=== PATIENT | male | born 1950 | race Caucasian/White ===

== ENCOUNTER 2018-01-12 19:21 | Inpatient (IN) | payer MEDICARE ==
[~2018-01-12] VITALS: Ht 142.2 cm; Wt 56.6 kg
--- NOTE | ~2018-01-12 | CN ---
PATIENT NAME:BEVERLY MANCIA MEDICAL RECORD: [id number] : 50 LOCATION:[id number] ADMIT DATE: 01/13/18 ACCOUNT: [id number] CONSULTING PHYSICIAN: [place] SHI MD REFERRING PHYSICIAN: LUZ JULIEN MD DATE OF CONSULTATION: 01/19/2018 Surgical Consultation ADDENDUM CHIEF COMPLAINT: Need for trach. HISTORY OF PRESENT ILLNESS: The patient has methicillin-resistant Staphylococcus aureus pneumonia. He has undergone serial bronchoscopies. I discussed this case personally with Dr. Pappas. He would like me to perform another therapeutic bronchoscopy during placement of the tracheostomy. I told him I would be happy to do so. The patient has cerebral palsy. He is unable to communicate with me as he is being mechanically ventilated. The risks, possible complications and alternatives were explained. A consent form was signed. The patient has methicillin-resistant Staphylococcus aureus pneumonia. He is a patient of Dr. Julien'diane. The pneumonia is bilateral. The patient has some hypoxia. Ventilation alleviates. Lack of ventilation aggravates. The patient has cerebral palsy. He is in amazingly good shape considering his age and his neurologic disorder. This is consultation note addendum. For the typed portion of the consult note, please see the chart. This would include the past medical and surgical history, current medications, allergies, social history as well as family history. REVIEW OF SYSTEMS: Unobtainable from the patient due to his ventilated state and sedation. PHYSICAL EXAMINATION: GENERAL: The patient does not appear acutely ill. He does appear chronically ill. VITAL SIGNS: Reviewed. EARS: External ears appear normal. EYES: Unable to assess. BACK: Kyphotic. EXTREMITIES: He has flexion contracture of the extremities. PULMONARY: Rhonchi bilaterally. He is being mechanically ventilated. Trachea is not in the midline. ABDOMEN: Benign. Unable to assess due to sedation. PSYCHIATRIC: Unable to assess due to sedation. NEUROLOGIC: Markedly abnormal. IMPRESSION: Pneumonia requiring prolonged mechanical ventilation and serial bronchoscopies. PLAN: Therapeutic and diagnostic bronchoscopy with bronchoalveolar lavage and placement of a percutaneous tracheostomy tube. CONSULT REPORT [id number] BEVERLY MANCIA TRANSINT:[id number] Voice Confirmation ID: [id number] DOCUMENT ID: [id number] KY SHI MD at 1517 CC: [id number] DICTATION DATE: 01/20/18 1135 TAX APPRAISER: 01/20/18 1203 ADM IN [facility] [address] [id number]
--- NOTE | ~2018-01-12 | OP ---
PATIENT NAME: BEVERLY MANCIA MEDICAL RECORD: [id number] :50 LOCATION:D.[facility] D.2306 ADMISSION DATE:01/13/18 SURGEON: AZAEL SHI MD DATE OF OPERATION: 01/20/2018 PREOPERATIVE DIAGNOSES: 1. Prolonged mechanical ventilation. 2. Methicillin resistant staphylococcus aureus pneumonia. POSTOPERATIVE DIAGNOSES: 1. Prolonged mechanical ventilation. 2. Methicillin resistant staphylococcus aureus pneumonia with purulence in all of the lobes of both lungs with severe bronchitis. PROCEDURES: 1. Diagnostic and therapeutic bronchoscopy with bronchoalveolar lavage. 2. Percutaneous tracheostomy placement, 7 mm. SURGEON: Azael Shi MD SUBSURFACE AUGMENTEE ELINT OPERATOR: None. BLOOD LOSS: Minimal. ANESTHESIA: General. COMPLICATIONS: None. The risks, possible complications, and alternatives to the procedure were explained. A consent form was signed. OPERATIVE COURSE: The patient was conveyed to the operating room electively on 01/20/2018. General anesthesia was induced by the anesthesia staff. The neck and upper chest were sterilely prepped and draped. A bronchoscopic adapter was applied to the endotracheal tube. I advanced a well-lubricated bronchoscope down into the endotracheal tube. Utilizing saline flushes, I irrigated and aspirated all the segmental bronchi. There was a great deal of bronchitis present diffusely as well as a lot of purulent debris within the segmental bronchi. I irrigated until all the segmental bronchi were free of any mucopurulent debris. I then removed the bronchoscope. I went and made a midline incision above the suprasternal notch. Due to the contracture of the patient with the face and neck being contracted to the left, the patient's trachea is actually off the midline, to the left. I dissected down to the trachea. I had to divide the isthmus of the thyroid gland. I had to divide some of the strap muscles as well due to this curvature of his neck. I dissected down into the trachea. I cleaned down past the second tracheal cartilage. I inserted a tracheal hook. I went above and advanced the bronchoscope once again. I had the bean sprout laborer slowly withdraw the bronchoscope and the endotracheal tube as a single unit. I then visualized bronchoscopically as I tapped the anterior portion of the trachea. Once I was able to see this, I then punctured at the level of the OPERATIVE REPORT [id number] BEVERLY MANCIA second tracheal cartilage anteriorly with an Angiocath. Through the Angiocath, I advanced a guidewire caudad down into the tracheobronchial tree. Over the guidewire, I dilated to a larger size. A 7 mm well-lubricated tracheostomy tube, which had been loaded on an obturator was advanced over the wire. It was advanced into the trachea. The balloon was inflated. The obturator and wire were removed. I then attached the corrugated tubing to the tracheostomy. We began ventilating the patient through the tracheostomy. After a little while, I removed the corrugated tubing and I performed a quick bronchoscopy down through the tracheostomy to confirm intratracheal placement. There was no evidence of injury to the esophagus. Endotracheal placement was confirmed. The tracheostomy adapter was applied and the tracheostomy was sutured to the surrounding skin with 2-0 nylons while the patient was being ventilated. I then closed the skin around the tracheostomy with interrupted 3-0 Vicryls. I then instilled some Krysta into the wound for additional hemostasis. A sterile dressing was applied. The patient was then conveyed to the intensive care unit in critical condition. TRANSINT:[id number] Voice Confirmation ID: [id number] DOCUMENT ID: [id number] AZAEL SHI MD at 1158 CC: [id number] DICTATION DATE: 01/23/18 144 ANESTHESIOLOGIST ASSISTANT CERTIFIED: 01/23/182053 DIS IN 02/01/18 [facility] [address] [id number]
--- NOTE | ~2018-01-12 | CN ---
PATIENT NAME:BEVERLY MANCIA MEDICAL RECORD: [id number] : 50 LOCATION:D[facility] ADMIT DATE: 01/13/18 ACCOUNT: [id number] CONSULTING PHYSICIAN: ESME DALTON MD REFERRING PHYSICIAN: LUZ JULIEN MD DATE OF CONSULTATION: 01/13/2018 CONSULT REQUESTING PHYSICIAN: Dr. Linda Julien. REASON FOR CONSULTATION: Pneumonia, eoymd-oi-kogerwk hypoxic hypercapnic respiratory failure. HISTORY OF PRESENT ILLNESS: Mr. Mancia is a 67-year-old gentleman who has a history of cerebral palsy. The history was taken by the help of his caregiver. He was brought in with chest pain and he was breathing very hard, and he was also very fatigued. There was slight cough without much sputum production. He denies any fever and chill. The patient is not eating and drinking because he has a PEG tube placement, but they are not sure if he might eat where he visits somebody else. REVIEW OF SYSTEMS: The detail not obtainable. PAST MEDICAL HISTORY: 1. Cerebral palsy. 2. Dysphagia. PAST SURGICAL HISTORY: Status post PEG tube placement. ALLERGIES: There are no known drug allergies. MEDICATIONS: CAD Best is reviewed. PERSONAL SOCIAL HISTORY: The patient never smoked and nondrinker. FAMILY HISTORY: Noncontributory. PHYSICAL EXAMINATION: GENERAL: The patient is now lying comfortably in bed. He is not in acute distress. VITAL SIGNS: The blood pressure is 179/86, pulse is 76, respiration is 15, temperature 99.1, SPO2 is 100% on BiPAP. HEENT: Conjunctivae are pink. Sclerae nonicteric. NECK: Neck is supple, no JVD. CHEST: The chest excursion minimal on both sides. There are crackles at the bases. There are marked kyphoscoliosis. HEART: Rhythm regular, normal sound, no murmur. ABDOMEN: Abdomen is soft. Bowel sounds present. No hepatosplenomegaly. RECTAL: Deferred. EXTREMITIES: No cyanosis, no clubbing. There is no pedal edema. SKIN: The skin is warm, normal turgor. CENTRAL NERVOUS SYSTEM: The patient is awake and alert. He has a cerebral palsy. LABORATORY DATA AND DIAGNOSTIC STUDIES: Chest radiograph, there are bilateral lower lobe infiltrate. CBC: WBC 18.6, hemoglobin 13.4, hematocrit is 39.2, the CONSULT REPORT [id number] BEVERLY MANCIA platelet count is 169. Chemistry: Sodium is 134, potassium is 3.8, BUN is 12, creatinine 0.8, and bicarb is 34.7. Cardiac enzymes in the normal range. ProBNP is 934. Albumin 3.1. IMPRESSION: 1. Alhig-gn-rikyinh hypoxic hypercapnic respiratory failure. 2. Compensated respiratory acidosis. 3. Bilateral lower lobe pneumonia, most likely community-acquired pneumonia. I would doubt aspiration as the patient has a PEG tube in. 4. Cerebral palsy. 5. Dysphagia, status post PEG tube placement. 6. Leukocytosis secondary to pneumonia. 7. Kyphoscoliosis. 8. Gastroesophageal reflux disease. RECOMMENDATION: 1. Continue Rocephin. I will discontinue Zithromax, start Levaquin to cover for Gram-negative coverage. 2. Follow labs and chest radiograph. Continue PEG feeding. Supplemental oxygen and BiPAP as required. Dr. Julien thank you for involving me in the care of Mr. Mancia. TRANSINT:[id number] Voice Confirmation ID: [id number] DOCUMENT ID: [id number] ESME DALTON MD at 1410 CC: LUZ JULIEN MD [id number] DICTATION DATE: 01/13/18 170 CERTIFIED CODER: 01/13/18 1728 ADM IN [id number] [place] [address]
[~2018-01-12 19:21] MED LIST: ATIVAN1 MG PO; BACLOFEN10 MG PO; BENADRYL 2% CRE30 GM TOPICAL; CLEOCIN HCL150 MG PEG; CLEOCIN HCL150 MG PT; PRILOSEC10 MG PO; ULTRAM50 MG PO; ZANAFLEX4 MG PO
[2018-01-12 21:38] LABS: BASOPHILS 0.1 % (0-2); EOSINOPHILS 0.9 % (0-7); HEMATOCRIT 41.3 % (42.0-54.0); HEMOGLOBIN 14.3 g/dL (13.5-17.5); IMMATURE GRANULOCYTES 0.2 % (0-5); LYMPHOCYTES 10.6 % (15-50); MCH 31.8 pg (26.0-34.0); MCHC 34.6 g/dL (31.0-37.0); MEAN PLATELET VOLUME 11.9 fL (7.4-10.4); MONOCYTES 7.8 % (2-11); NEUTROPHILS 80.4 % (40-80); RBC 4.49 10x6/uL (4.20-6.10); RDW 12.3 % (11.5-14.5); WBC 12.8 10x3/uL (4.8-10.8)
[2018-01-12 21:42] LABS: PLATELET COUNT 193 10x3/uL (130-400)
[2018-01-12 21:51] LABS: APPEARANCE CLEAR (CLEAR); BILIRUBIN NEGATIVE (NEGATIVE); COLOR YELLOW (YELLOW); GLUCOSE NEGATIVE (NEGATIVE); KETONE NEGATIVE (NEGATIVE); NITRITE NEGATIVE (NEGATIVE); PROTEIN NEGATIVE (NEGATIVE); UROBILINOGEN NORMAL (NORMAL)
[2018-01-12 21:55] LABS: ALBUMIN 3.6 g/dL (3.4-5.0); ALKALINE PHOSPHATASE 111 U/L (46-116); ALT (SGPT) 22 U/L (10-68); CALC OSMOLALITY 262 mosm/kg (275-300); CALCIUM 8.6 mg/dL (8.5-10.1); CHLORIDE - SERUM 89 mmol/L (98-107); CREATININE - SERUM 0.4 mg/dL (0.6-1.3); GLUCOSE 101 mg/dL (74-106); POTASSIUM - SERUM 3.8 mmol/L (3.5-5.1); SODIUM 131 mmol/L (136-145); UREA NITROGEN 12 mg/dL (7-18); eGFR NON AFRICAN AMERICAN > 90 mL/min (90-120)
[2018-01-12 22:06] LABS: CKMB 3.2 U/L (0.0-3.6); CREATINE KINASE 137 UL (21-232)
[2018-01-12 22:12] LABS: TROPONIN-I < 0.017 ng/mL (0.000-0.060)
[2018-01-13 03:47] VITALS: BP 178/71; BMI 22.4
[2018-01-13] MEDS ORDERED: ATIVAN0.5 MG PO (05:06)
[2018-01-13] MEDS ORDERED: BACLOFEN20 M1 PO (05:08)
[2018-01-13] MEDS ORDERED: PRILOSEC10 M1 PO (05:09)
[2018-01-13] MEDS ORDERED: ULTRAM50 MG PO (05:12)
[2018-01-13] MEDS ORDERED: ZANAFLEX4 MG PO (05:13)
[2018-01-13 05:19] VITALS: BP 178/71
[2018-01-13 08:10] VITALS: BP 179/84
[2018-01-13 10:57] LABS: BASOPHILS 0 % (0-2); EOSINOPHILS 0 % (0-7); HEMATOCRIT 39.2 % (42.0-54.0); HEMOGLOBIN 13.4 g/dL (13.5-17.5); IMMATURE GRANULOCYTES 0.3 % (0-5); LYMPHOCYTES 1.7 % (15-50); MCH 31.8 pg (26.0-34.0); MCHC 34.2 g/dL (31.0-37.0); MCV 93.1 fL (80.0-100.0); MEAN PLATELET VOLUME 12.2 fL (7.4-10.4); MONOCYTES 0.6 % (2-11); NEUTROPHILS 97.4 % (40-80); PLATELET COUNT 169 10x3/uL (130-400); RBC 4.21 10x6/uL (4.20-6.10); RDW 12.4 % (11.5-14.5)
[2018-01-13 11:04] LABS: WBC 18.6 10x3/uL (4.8-10.8)
[2018-01-13 11:16] LABS: ALBUMIN 3.1 g/dL (3.4-5.0); ALKALINE PHOSPHATASE 85 U/L (46-116); ALT (SGPT) 18 U/L (10-68); CALCIUM 8.3 mg/dL (8.5-10.1); CARBON DIOXIDE 34.7 mmol/L (21.0-32.0); CHLORIDE - SERUM 95 mmol/L (98-107); POTASSIUM - SERUM 3.8 mmol/L (3.5-5.1); PROTEIN - SERUM 7.5 g/dL (6.4-8.2); SODIUM 134 mmol/L (136-145); UREA NITROGEN 12 mg/dL (7-18)
[2018-01-13 11:22] LABS: CALC OSMOLALITY 271 mosm/kg (275-300); CREATININE - SERUM 0.8 mg/dL (0.6-1.3); GLUCOSE 178 mg/dL (74-106); eGFR NON AFRICAN AMERICAN > 90 mL/min (90-120)
[2018-01-13 12:49] VITALS: BP 179/86
[2018-01-13 13:58] VITALS: BMI 22.4
[2018-01-13 15:55] VITALS: BP 179/87
[2018-01-13 16:51] LABS: CKMB 1.8 U/L (0.0-3.6); CREATINE KINASE 121 UL (21-232)
[2018-01-13 16:52] LABS: TROPONIN-I < 0.017 ng/mL (0.000-0.060)
[2018-01-13 20:46] VITALS: BP 186/79
[2018-01-13 22:50] LABS: CKMB 2.4 U/L (0.0-3.6); CREATINE KINASE 154 UL (21-232)
[2018-01-13 22:51] LABS: TROPONIN-I < 0.017 ng/mL (0.000-0.060)
[2018-01-14 01:30] VITALS: BP 101/50
[2018-01-14 04:27] LABS: BASOPHILS 0 % (0-2); EOSINOPHILS 0 % (0-7); HEMATOCRIT 36.1 % (42.0-54.0); HEMOGLOBIN 12.3 g/dL (13.5-17.5); IMMATURE GRANULOCYTES 0.4 % (0-5); LYMPHOCYTES 3.6 % (15-50); MCH 31.2 pg (26.0-34.0); MCHC 34.1 g/dL (31.0-37.0); MCV 91.6 fL (80.0-100.0); MONOCYTES 7.7 % (2-11); NEUTROPHILS 88.3 % (40-80); PLATELET COUNT 155 10x3/uL (130-400); RBC 3.94 10x6/uL (4.20-6.10); RDW 12.4 % (11.5-14.5); WBC 21.7 10x3/uL (4.8-10.8)
[2018-01-14 04:49] VITALS: BP 174/80
[2018-01-14 05:21] LABS: ALBUMIN 2.9 g/dL (3.4-5.0); ALKALINE PHOSPHATASE 88 U/L (46-116); ALT (SGPT) 20 U/L (10-68); BILIRUBIN - TOTAL 0.47 mg/dL (0.2-1.3); CALCIUM 7.7 mg/dL (8.5-10.1); CARBON DIOXIDE 28.8 mmol/L (21.0-32.0); CHLORIDE - SERUM 95 mmol/L (98-107); CKMB 3.3 U/L (0.0-3.6); PROTEIN - SERUM 6.7 g/dL (6.4-8.2); SODIUM 134 mmol/L (136-145); UREA NITROGEN 13 mg/dL (7-18)
[2018-01-14 05:22] LABS: CALC OSMOLALITY 268 mosm/kg (275-300); CREATINE KINASE 270 UL (21-232); CREATININE - SERUM 0.3 mg/dL (0.6-1.3); GLUCOSE 114 mg/dL (74-106); POTASSIUM - SERUM 4.6 mmol/L (3.5-5.1); TROPONIN-I < 0.017 ng/mL (0.000-0.060); eGFR NON AFRICAN AMERICAN > 90 mL/min (90-120)
[2018-01-14 08:25] VITALS: BP 170/68
[2018-01-14 12:38] VITALS: BP 169/87
[2018-01-14 15:49] VITALS: BP 172/86
[2018-01-14 20:00] VITALS: BP 193/93
[2018-01-15] VITALS (17 sets, daily range): BP systolic 103–165; BP diastolic 55–93
[2018-01-15 06:59] LABS: BASOPHILS 0 % (0-2); EOSINOPHILS 0.1 % (0-7); HEMATOCRIT 38.4 % (42.0-54.0); HEMOGLOBIN 12.7 g/dL (13.5-17.5); IMMATURE GRANULOCYTES 0.3 % (0-5); LYMPHOCYTES 5.3 % (15-50); MCH 31.6 pg (26.0-34.0); MCHC 33.1 g/dL (31.0-37.0); MEAN PLATELET VOLUME 12.3 fL (7.4-10.4); MONOCYTES 8.4 % (2-11); NEUTROPHILS 85.9 % (40-80); PLATELET COUNT 184 10x3/uL (130-400); RBC 4.02 10x6/uL (4.20-6.10); RDW 12.8 % (11.5-14.5); WBC 18.1 10x3/uL (4.8-10.8)
[2018-01-15 07:02] LABS: MCV 95.5 fL (80.0-100.0)
[2018-01-15 07:25] LABS: ALBUMIN 2.9 g/dL (3.4-5.0); ALKALINE PHOSPHATASE 86 U/L (46-116); ALT (SGPT) 20 U/L (10-68); BILIRUBIN - TOTAL 0.23 mg/dL (0.2-1.3); CALC OSMOLALITY 273 mosm/kg (275-300); CALCIUM 7.9 mg/dL (8.5-10.1); CARBON DIOXIDE 36.3 mmol/L (21.0-32.0); CHLORIDE - SERUM 95 mmol/L (98-107); CREATININE - SERUM 0.4 mg/dL (0.6-1.3); GLUCOSE 103 mg/dL (74-106); POTASSIUM - SERUM 3.7 mmol/L (3.5-5.1); PROTEIN - SERUM 7.2 g/dL (6.4-8.2); SODIUM 137 mmol/L (136-145); UREA NITROGEN 13 mg/dL (7-18); eGFR NON AFRICAN AMERICAN > 90 mL/min (90-120)
[2018-01-16] VITALS (23 sets, daily range): BP systolic 114–192; BP diastolic 61–92
[2018-01-16 03:48] LABS: BASOPHILS 0 % (0-2); EOSINOPHILS 0.1 % (0-7); HEMATOCRIT 37.3 % (42.0-54.0); HEMOGLOBIN 12.4 g/dL (13.5-17.5); IMMATURE GRANULOCYTES 0.3 % (0-5); LYMPHOCYTES 6.5 % (15-50); MCH 31.3 pg (26.0-34.0); MCHC 33.2 g/dL (31.0-37.0); MCV 94.2 fL (80.0-100.0); MEAN PLATELET VOLUME 11.4 fL (7.4-10.4); NEUTROPHILS 88.1 % (40-80); PLATELET COUNT 160 10x3/uL (130-400); RBC 3.96 10x6/uL (4.20-6.10); RDW 12.4 % (11.5-14.5); WBC 15.3 10x3/uL (4.8-10.8)
[2018-01-16 04:23] LABS: ALBUMIN 2.6 g/dL (3.4-5.0); ALKALINE PHOSPHATASE 78 U/L (46-116); ALT (SGPT) 16 U/L (10-68); BILIRUBIN - TOTAL 0.49 mg/dL (0.2-1.3); CALC OSMOLALITY 276 mosm/kg (275-300); CHLORIDE - SERUM 96 mmol/L (98-107); CREATININE - SERUM 0.4 mg/dL (0.6-1.3); GLUCOSE 97 mg/dL (74-106); MAGNESIUM - SERUM 1.9 mg/dL (1.8-2.4); POTASSIUM - SERUM 3.7 mmol/L (3.5-5.1); PRO BNP 1528 pg/mL (0-125); PROTEIN - SERUM 6.1 g/dL (6.4-8.2); SODIUM 138 mmol/L (136-145); UREA NITROGEN 15 mg/dL (7-18); eGFR NON AFRICAN AMERICAN > 90 mL/min (90-120)
[2018-01-16 04:26] LABS: PHOSPHOROUS 1.3 mg/dL (2.5-4.9)
[2018-01-17] VITALS (24 sets, daily range): BP systolic 112–187; BP diastolic 52–105
[2018-01-17 04:52] LABS: BASOPHILS 0 % (0-2); EOSINOPHILS 0.1 % (0-7); HEMATOCRIT 34.1 % (42.0-54.0); HEMOGLOBIN 11.4 g/dL (13.5-17.5); IMMATURE GRANULOCYTES 0.4 % (0-5); MCH 31.4 pg (26.0-34.0); MCHC 33.4 g/dL (31.0-37.0); MCV 93.9 fL (80.0-100.0); MEAN PLATELET VOLUME 11.2 fL (7.4-10.4); NEUTROPHILS 85.5 % (40-80); PLATELET COUNT 176 10x3/uL (130-400); RBC 3.63 10x6/uL (4.20-6.10); RDW 12.6 % (11.5-14.5); WBC 15.9 10x3/uL (4.8-10.8)
[2018-01-17 05:09] LABS: ALBUMIN 2.4 g/dL (3.4-5.0); ALKALINE PHOSPHATASE 94 U/L (46-116); ALT (SGPT) 18 U/L (10-68); CALCIUM 7.6 mg/dL (8.5-10.1); CARBON DIOXIDE 39.6 mmol/L (21.0-32.0); CHLORIDE - SERUM 94 mmol/L (98-107); MAGNESIUM - SERUM 1.6 mg/dL (1.8-2.4); SODIUM 139 mmol/L (136-145); UREA NITROGEN 16 mg/dL (7-18)
[2018-01-17 05:10] LABS: CALC OSMOLALITY 281 mosm/kg (275-300); CREATININE - SERUM 0.6 mg/dL (0.6-1.3); GLUCOSE 153 mg/dL (74-106); PHOSPHOROUS 2.1 mg/dL (2.5-4.9); eGFR NON AFRICAN AMERICAN > 90 mL/min (90-120)
[2018-01-17 05:11] LABS: POTASSIUM - SERUM 2.7 mmol/L (3.5-5.1)
[2018-01-18] VITALS (24 sets, daily range): BP systolic 94–175; BP diastolic 49–107
[2018-01-18 05:50] LABS: BASOPHILS 0 % (0-2); EOSINOPHILS 0.4 % (0-7); HEMATOCRIT 34.4 % (42.0-54.0); HEMOGLOBIN 11.4 g/dL (13.5-17.5); IMMATURE GRANULOCYTES 0.4 % (0-5); LYMPHOCYTES 6.3 % (15-50); MCH 31.2 pg (26.0-34.0); MCHC 33.1 g/dL (31.0-37.0); MCV 94.2 fL (80.0-100.0); MONOCYTES 6.9 % (2-11); PLATELET COUNT 193 10x3/uL (130-400); RBC 3.65 10x6/uL (4.20-6.10); RDW 12.9 % (11.5-14.5); WBC 14.6 10x3/uL (4.8-10.8)
[2018-01-18 06:26] LABS: ALBUMIN 2.5 g/dL (3.4-5.0); ALKALINE PHOSPHATASE 82 U/L (46-116); CALC OSMOLALITY 285 mosm/kg (275-300); CALCIUM 8.6 mg/dL (8.5-10.1); CARBON DIOXIDE 36.7 mmol/L (21.0-32.0); CHLORIDE - SERUM 99 mmol/L (98-107); CREATININE - SERUM 0.6 mg/dL (0.6-1.3); GLUCOSE 132 mg/dL (74-106); MAGNESIUM - SERUM 1.6 mg/dL (1.8-2.4); PHOSPHOROUS 2.4 mg/dL (2.5-4.9); SODIUM 141 mmol/L (136-145); UREA NITROGEN 20 mg/dL (7-18); eGFR NON AFRICAN AMERICAN > 90 mL/min (90-120)
[2018-01-18 06:27] LABS: ALT (SGPT) 24 U/L (10-68); POTASSIUM - SERUM 3.7 mmol/L (3.5-5.1)
[2018-01-18 16:14] LABS: AFB SPECIMEN PROCESSING Concentration (())
[2018-01-19] VITALS (23 sets, daily range): BP systolic 85–151; BP diastolic 27–138
[2018-01-19 05:14] LABS: BASOPHILS 0.1 % (0-2); EOSINOPHILS 1.8 % (0-7); HEMATOCRIT 33.4 % (42.0-54.0); IMMATURE GRANULOCYTES 0.9 % (0-5); LYMPHOCYTES 9.9 % (15-50); MCH 31.2 pg (26.0-34.0); MCHC 32.9 g/dL (31.0-37.0); MCV 94.6 fL (80.0-100.0); MEAN PLATELET VOLUME 10.9 fL (7.4-10.4); MONOCYTES 7.7 % (2-11); NEUTROPHILS 79.6 % (40-80); PLATELET COUNT 195 10x3/uL (130-400); RBC 3.53 10x6/uL (4.20-6.10); RDW 13.2 % (11.5-14.5); WBC 12.9 10x3/uL (4.8-10.8)
[2018-01-19 05:28] LABS: ALBUMIN 2.2 g/dL (3.4-5.0); ALKALINE PHOSPHATASE 83 U/L (46-116); CALC OSMOLALITY 286 mosm/kg (275-300); CALCIUM 8.6 mg/dL (8.5-10.1); CARBON DIOXIDE 34.7 mmol/L (21.0-32.0); CHLORIDE - SERUM 103 mmol/L (98-107); CREATININE - SERUM 0.6 mg/dL (0.6-1.3); GLUCOSE 105 mg/dL (74-106); MAGNESIUM - SERUM 1.8 mg/dL (1.8-2.4); POTASSIUM - SERUM 4.2 mmol/L (3.5-5.1); PROTEIN - SERUM 6.7 g/dL (6.4-8.2); SODIUM 142 mmol/L (136-145); UREA NITROGEN 23 mg/dL (7-18); eGFR NON AFRICAN AMERICAN > 90 mL/min (90-120)
[2018-01-19 05:43] LABS: ALT (SGPT) 32 U/L (10-68); PHOSPHOROUS 3.5 mg/dL (2.5-4.9)
[2018-01-19 11:21] LABS: FUNGUS STAIN Final report (())
[2018-01-20] VITALS (29 sets, daily range): BP systolic 73–202; BP diastolic 4–97
[2018-01-20 04:33] LABS: BASOPHILS 0.1 % (0-2); EOSINOPHILS 2.3 % (0-7); HEMATOCRIT 31.5 % (42.0-54.0); IMMATURE GRANULOCYTES 1.2 % (0-5); LYMPHOCYTES 12.8 % (15-50); MCH 30.7 pg (26.0-34.0); MCHC 31.7 g/dL (31.0-37.0); MEAN PLATELET VOLUME 11.2 fL (7.4-10.4); MONOCYTES 9.7 % (2-11); NEUTROPHILS 73.9 % (40-80); PLATELET COUNT 198 10x3/uL (130-400); RBC 3.26 10x6/uL (4.20-6.10); RDW 13.7 % (11.5-14.5); WBC 11.6 10x3/uL (4.8-10.8)
[2018-01-20 04:40] LABS: MCV 96.6 fL (80.0-100.0)
[2018-01-20 04:54] LABS: ALBUMIN 2.1 g/dL (3.4-5.0); ALKALINE PHOSPHATASE 73 U/L (46-116); ALT (SGPT) 29 U/L (10-68); BILIRUBIN - TOTAL 0.29 mg/dL (0.2-1.3); CALCIUM 8.6 mg/dL (8.5-10.1); CARBON DIOXIDE 32.5 mmol/L (21.0-32.0); CHLORIDE - SERUM 104 mmol/L (98-107); CREATININE - SERUM 0.5 mg/dL (0.6-1.3); GLUCOSE 126 mg/dL (74-106); POTASSIUM - SERUM 4.5 mmol/L (3.5-5.1); PROTEIN - SERUM 6.4 g/dL (6.4-8.2); SODIUM 142 mmol/L (136-145); eGFR NON AFRICAN AMERICAN > 90 mL/min (90-120)
[2018-01-20 04:55] LABS: CALC OSMOLALITY 292 mosm/kg (275-300); UREA NITROGEN 34 mg/dL (7-18)
[2018-01-21] VITALS (24 sets, daily range): BP systolic 84–146; BP diastolic 47–74
[2018-01-21 04:30] LABS: BASOPHILS 0.1 % (0-2); HEMATOCRIT 27.7 % (42.0-54.0); HEMOGLOBIN 9.1 g/dL (13.5-17.5); IMMATURE GRANULOCYTES 0.9 % (0-5); LYMPHOCYTES 12.3 % (15-50); MCHC 32.9 g/dL (31.0-37.0); MCV 94.2 fL (80.0-100.0); MEAN PLATELET VOLUME 10.3 fL (7.4-10.4); MONOCYTES 7.8 % (2-11); NEUTROPHILS 76.9 % (40-80); PLATELET COUNT 203 10x3/uL (130-400); RBC 2.94 10x6/uL (4.20-6.10); RDW 13.5 % (11.5-14.5); WBC 12.6 10x3/uL (4.8-10.8)
[2018-01-21 04:52] LABS: CALC OSMOLALITY 295 mosm/kg (275-300); CALCIUM 8.4 mg/dL (8.5-10.1); CHLORIDE - SERUM 108 mmol/L (98-107); CREATININE - SERUM 0.6 mg/dL (0.6-1.3); GLUCOSE 128 mg/dL (74-106); MAGNESIUM - SERUM 2.1 mg/dL (1.8-2.4); PHOSPHOROUS 2.8 mg/dL (2.5-4.9); SODIUM 144 mmol/L (136-145); UREA NITROGEN 33 mg/dL (7-18); eGFR NON AFRICAN AMERICAN > 90 mL/min (90-120)
[2018-01-21 05:01] LABS: POTASSIUM - SERUM 3.8 mmol/L (3.5-5.1)
[2018-01-21 17:12] LABS: FUNGUS CULTURE RESULT 1 Candida glabrata (())
[2018-01-22] VITALS (25 sets, daily range): BP systolic 88–164; BP diastolic 50–80
[2018-01-22 04:57] LABS: BASOPHILS 0.1 % (0-2); EOSINOPHILS 2.6 % (0-7); HEMATOCRIT 27.2 % (42.0-54.0); HEMOGLOBIN 8.8 g/dL (13.5-17.5); IMMATURE GRANULOCYTES 1.4 % (0-5); LYMPHOCYTES 15.4 % (15-50); MCH 30.4 pg (26.0-34.0); MCHC 32.4 g/dL (31.0-37.0); MCV 94.1 fL (80.0-100.0); MEAN PLATELET VOLUME 10.8 fL (7.4-10.4); MONOCYTES 8.8 % (2-11); NEUTROPHILS 71.7 % (40-80); PLATELET COUNT 242 10x3/uL (130-400); RBC 2.89 10x6/uL (4.20-6.10); RDW 13.4 % (11.5-14.5)
[2018-01-22 05:08] LABS: % SATURATION 14 % (15-55); IRON 23 ug/dl (35-150); TOTAL IRON BIND CAPACITY 159 ug/dl (260-445); UNSAT IRON BIND CAPACITY 136 ug/dl (150-375)
[2018-01-22 05:24] LABS: ALKALINE PHOSPHATASE 84 U/L (46-116); ALT (SGPT) 44 U/L (10-68); CALC OSMOLALITY 284 mosm/kg (275-300); CALCIUM 8.2 mg/dL (8.5-10.1); CARBON DIOXIDE 29.4 mmol/L (21.0-32.0); CHLORIDE - SERUM 106 mmol/L (98-107); CREATININE - SERUM 0.5 mg/dL (0.6-1.3); FERRITIN 137 ng/mL (3-244); GLUCOSE 117 mg/dL (74-106); PROTEIN - SERUM 6.4 g/dL (6.4-8.2); SODIUM 140 mmol/L (136-145); UREA NITROGEN 27 mg/dL (7-18); eGFR NON AFRICAN AMERICAN > 90 mL/min (90-120)
[2018-01-23] VITALS (26 sets, daily range): BP systolic 80–160; BP diastolic 45–690
[2018-01-23 04:59] LABS: BASOPHILS 0.1 % (0-2); EOSINOPHILS 2.8 % (0-7); HEMATOCRIT 26.5 % (42.0-54.0); HEMOGLOBIN 8.7 g/dL (13.5-17.5); IMMATURE GRANULOCYTES 2.1 % (0-5); LYMPHOCYTES 15.2 % (15-50); MCH 30.9 pg (26.0-34.0); MCHC 32.8 g/dL (31.0-37.0); MEAN PLATELET VOLUME 10.6 fL (7.4-10.4); NEUTROPHILS 71.8 % (40-80); PLATELET COUNT 275 10x3/uL (130-400); RBC 2.82 10x6/uL (4.20-6.10); RDW 13.4 % (11.5-14.5); WBC 10.5 10x3/uL (4.8-10.8)
[2018-01-23 05:23] LABS: CALC OSMOLALITY 282 mosm/kg (275-300); CALCIUM 7.9 mg/dL (8.5-10.1); CARBON DIOXIDE 29.5 mmol/L (21.0-32.0); CHLORIDE - SERUM 103 mmol/L (98-107); CREATININE - SERUM 0.5 mg/dL (0.6-1.3); GLUCOSE 108 mg/dL (74-106); POTASSIUM - SERUM 4.1 mmol/L (3.5-5.1); SODIUM 139 mmol/L (136-145); UREA NITROGEN 24 mg/dL (7-18); eGFR NON AFRICAN AMERICAN > 90 mL/min (90-120)
[2018-01-24] VITALS (24 sets, daily range): BP systolic 101–191; BP diastolic 56–90; Ht 142.2 cm; Wt 56.6 kg
[2018-01-24 07:04] LABS: BASOPHILS 0.1 % (0-2); HEMATOCRIT 27.2 % (42.0-54.0); HEMOGLOBIN 8.9 g/dL (13.5-17.5); IMMATURE GRANULOCYTES 2.6 % (0-5); LYMPHOCYTES 14.3 % (15-50); MCH 30.5 pg (26.0-34.0); MCHC 32.7 g/dL (31.0-37.0); MCV 93.2 fL (80.0-100.0); MEAN PLATELET VOLUME 10.5 fL (7.4-10.4); MONOCYTES 9.8 % (2-11); NEUTROPHILS 71.2 % (40-80); PLATELET COUNT 322 10x3/uL (130-400); RBC 2.92 10x6/uL (4.20-6.10); RDW 13.2 % (11.5-14.5); WBC 10.5 10x3/uL (4.8-10.8)
[2018-01-24 07:38] LABS: ALBUMIN 1.9 g/dL (3.4-5.0); ALKALINE PHOSPHATASE 103 U/L (46-116); ALT (SGPT) 65 U/L (10-68); BILIRUBIN - TOTAL 0.14 mg/dL (0.2-1.3); CALC OSMOLALITY 274 mosm/kg (275-300); CALCIUM 7.7 mg/dL (8.5-10.1); CARBON DIOXIDE 26.7 mmol/L (21.0-32.0); CHLORIDE - SERUM 101 mmol/L (98-107); CREATININE - SERUM 0.5 mg/dL (0.6-1.3); GLUCOSE 106 mg/dL (74-106); POTASSIUM - SERUM 3.6 mmol/L (3.5-5.1); PROTEIN - SERUM 6.3 g/dL (6.4-8.2); SODIUM 136 mmol/L (136-145); UREA NITROGEN 20 mg/dL (7-18); VANCOMYCIN - RANDOM 6.3 ug/mL (10.0-20.0); eGFR NON AFRICAN AMERICAN > 90 mL/min (90-120)
[2018-01-25] VITALS (24 sets, daily range): BP systolic 135–167; BP diastolic 63–86
[2018-01-25 05:20] LABS: BASOPHILS 0.2 % (0-2); EOSINOPHILS 1.4 % (0-7); HEMATOCRIT 31.5 % (42.0-54.0); HEMOGLOBIN 10.5 g/dL (13.5-17.5); LYMPHOCYTES 12.3 % (15-50); MCH 30.5 pg (26.0-34.0); MCHC 33.3 g/dL (31.0-37.0); MCV 91.6 fL (80.0-100.0); MEAN PLATELET VOLUME 10.7 fL (7.4-10.4); NEUTROPHILS 74.1 % (40-80); PLATELET COUNT 373 10x3/uL (130-400); RBC 3.44 10x6/uL (4.20-6.10); RDW 13.6 % (11.5-14.5); WBC 12.5 10x3/uL (4.8-10.8)
[2018-01-25 05:29] LABS: % SATURATION 44 % (15-55); IRON 72 ug/dl (35-150); TOTAL IRON BIND CAPACITY 162 ug/dl (260-445); UNSAT IRON BIND CAPACITY 90 ug/dl (150-375)
[2018-01-25 05:45] LABS: CALC OSMOLALITY 274 mosm/kg (275-300); CALCIUM 7.9 mg/dL (8.5-10.1); CARBON DIOXIDE 28.4 mmol/L (21.0-32.0); CHLORIDE - SERUM 102 mmol/L (98-107); CREATININE - SERUM 0.4 mg/dL (0.6-1.3); FERRITIN 778 ng/mL (3-244); GLUCOSE 116 mg/dL (74-106); POTASSIUM - SERUM 3.8 mmol/L (3.5-5.1); PRO BNP 707 pg/mL (0-125); SODIUM 136 mmol/L (136-145); UREA NITROGEN 18 mg/dL (7-18); VANCOMYCIN - RANDOM 8.4 ug/mL (10.0-20.0); eGFR NON AFRICAN AMERICAN > 90 mL/min (90-120)
[2018-01-26] VITALS (24 sets, daily range): BP systolic 107–153; BP diastolic 64–77
[2018-01-26 05:03] LABS: BASOPHILS 0.2 % (0-2); EOSINOPHILS 2.3 % (0-7); HEMATOCRIT 29.6 % (42.0-54.0); HEMOGLOBIN 9.8 g/dL (13.5-17.5); IMMATURE GRANULOCYTES 1.4 % (0-5); LYMPHOCYTES 16.7 % (15-50); MCH 30.7 pg (26.0-34.0); MCHC 33.1 g/dL (31.0-37.0); MCV 92.8 fL (80.0-100.0); MEAN PLATELET VOLUME 10.6 fL (7.4-10.4); MONOCYTES 9.6 % (2-11); NEUTROPHILS 69.8 % (40-80); PLATELET COUNT 403 10x3/uL (130-400); RBC 3.19 10x6/uL (4.20-6.10); RDW 13.8 % (11.5-14.5); WBC 10.9 10x3/uL (4.8-10.8)
[2018-01-26 05:34] LABS: CALC OSMOLALITY 276 mosm/kg (275-300); CALCIUM 8.2 mg/dL (8.5-10.1); CARBON DIOXIDE 29.7 mmol/L (21.0-32.0); CHLORIDE - SERUM 102 mmol/L (98-107); CREATININE - SERUM 0.5 mg/dL (0.6-1.3); GLUCOSE 117 mg/dL (74-106); SODIUM 137 mmol/L (136-145); UREA NITROGEN 19 mg/dL (7-18); eGFR NON AFRICAN AMERICAN > 90 mL/min (90-120)
[2018-01-26 08:22] LABS: FOLATE (FOLIC ACID) - SERUM >20.0 ng/mL (>3.0)
[2018-01-27] VITALS (23 sets, daily range): BP systolic 121–149; BP diastolic 57–82
[2018-01-27 05:16] LABS: BASOPHILS 0.2 % (0-2); EOSINOPHILS 1.9 % (0-7); HEMATOCRIT 31.4 % (42.0-54.0); HEMOGLOBIN 10.2 g/dL (13.5-17.5); IMMATURE GRANULOCYTES 1.5 % (0-5); LYMPHOCYTES 14.8 % (15-50); MCH 30.6 pg (26.0-34.0); MCHC 32.5 g/dL (31.0-37.0); MCV 94.3 fL (80.0-100.0); MEAN PLATELET VOLUME 10.9 fL (7.4-10.4); MONOCYTES 11.3 % (2-11); NEUTROPHILS 70.3 % (40-80); PLATELET COUNT 447 10x3/uL (130-400); RBC 3.33 10x6/uL (4.20-6.10)
[2018-01-27 05:39] LABS: ALBUMIN 2.1 g/dL (3.4-5.0); ALKALINE PHOSPHATASE 106 U/L (46-116); ALT (SGPT) 132 U/L (10-68); CALC OSMOLALITY 276 mosm/kg (275-300); CALCIUM 8.1 mg/dL (8.5-10.1); CARBON DIOXIDE 30.5 mmol/L (21.0-32.0); CHLORIDE - SERUM 101 mmol/L (98-107); CREATININE - SERUM 0.5 mg/dL (0.6-1.3); GLUCOSE 117 mg/dL (74-106); PHOSPHOROUS 3.1 mg/dL (2.5-4.9); POTASSIUM - SERUM 3.9 mmol/L (3.5-5.1); PROTEIN - SERUM 6.5 g/dL (6.4-8.2); SODIUM 137 mmol/L (136-145); UREA NITROGEN 18 mg/dL (7-18); eGFR NON AFRICAN AMERICAN > 90 mL/min (90-120)
[2018-01-27 18:48] LABS: ACID FAST SMEAR Negative (()); AFB SPECIMEN PROCESSING Concentration (())
[2018-01-28] VITALS (24 sets, daily range): BP systolic 95–170; BP diastolic 54–84
[2018-01-28 04:54] LABS: BASOPHILS 0.2 % (0-2); EOSINOPHILS 2.2 % (0-7); HEMATOCRIT 33.3 % (42.0-54.0); HEMOGLOBIN 10.8 g/dL (13.5-17.5); IMMATURE GRANULOCYTES 1.4 % (0-5); LYMPHOCYTES 17.9 % (15-50); MCH 30.9 pg (26.0-34.0); MCHC 32.4 g/dL (31.0-37.0); MCV 95.1 fL (80.0-100.0); MEAN PLATELET VOLUME 10.8 fL (7.4-10.4); MONOCYTES 9.3 % (2-11); PLATELET COUNT 474 10x3/uL (130-400); RDW 14.2 % (11.5-14.5); WBC 9.6 10x3/uL (4.8-10.8)
[2018-01-28 05:37] LABS: ALBUMIN 2.2 g/dL (3.4-5.0); ALKALINE PHOSPHATASE 111 U/L (46-116); ALT (SGPT) 150 U/L (10-68); AMYLASE - SERUM 58 U/L (25-115); BILIRUBIN - DIRECT 0.08 mg/dL (0.00-0.30); BILIRUBIN - INDIRECT 0.14 mg/dL (0.00-1.00); BILIRUBIN - TOTAL 0.22 mg/dL (0.2-1.3); CALC OSMOLALITY 275 mosm/kg (275-300); CARBON DIOXIDE 28.2 mmol/L (21.0-32.0); CHLORIDE - SERUM 99 mmol/L (98-107); CREATININE - SERUM 0.4 mg/dL (0.6-1.3); GLUCOSE 126 mg/dL (74-106); LIPASE 310 U/L (73-393); POTASSIUM - SERUM 3.8 mmol/L (3.5-5.1); PROTEIN - SERUM 6.9 g/dL (6.4-8.2); SODIUM 136 mmol/L (136-145); UREA NITROGEN 17 mg/dL (7-18); eGFR NON AFRICAN AMERICAN > 90 mL/min (90-120)
[2018-01-28 13:18] LABS: FUNGUS STAIN Final report (())
[2018-01-29] VITALS (24 sets, daily range): BP systolic 76–159; BP diastolic 36–83
[2018-01-29 06:12] LABS: BASOPHILS 0.3 % (0-2); EOSINOPHILS 2.3 % (0-7); HEMATOCRIT 29.7 % (42.0-54.0); HEMOGLOBIN 9.6 g/dL (13.5-17.5); IMMATURE GRANULOCYTES 0.6 % (0-5); LYMPHOCYTES 18.1 % (15-50); MCH 31.1 pg (26.0-34.0); MCHC 32.3 g/dL (31.0-37.0); MCV 96.1 fL (80.0-100.0); MEAN PLATELET VOLUME 10.3 fL (7.4-10.4); MONOCYTES 10.3 % (2-11); NEUTROPHILS 68.4 % (40-80); PLATELET COUNT 440 10x3/uL (130-400); RBC 3.09 10x6/uL (4.20-6.10); WBC 7.8 10x3/uL (4.8-10.8)
[2018-01-29 06:31] LABS: CALC OSMOLALITY 278 mosm/kg (275-300); CALCIUM 8.1 mg/dL (8.5-10.1); CARBON DIOXIDE 30.4 mmol/L (21.0-32.0); CHLORIDE - SERUM 101 mmol/L (98-107); CREATININE - SERUM 0.4 mg/dL (0.6-1.3); GLUCOSE 113 mg/dL (74-106); MAGNESIUM - SERUM 2.2 mg/dL (1.8-2.4); PHOSPHOROUS 4.1 mg/dL (2.5-4.9); POTASSIUM - SERUM 3.9 mmol/L (3.5-5.1); SODIUM 138 mmol/L (136-145); UREA NITROGEN 18 mg/dL (7-18); eGFR NON AFRICAN AMERICAN > 90 mL/min (90-120)
[2018-01-30] VITALS (24 sets, daily range): BP systolic 109–165; BP diastolic 58–87
[2018-01-30 05:21] LABS: BASOPHILS 0.4 % (0-2); HEMATOCRIT 30.3 % (42.0-54.0); HEMOGLOBIN 9.7 g/dL (13.5-17.5); IMMATURE GRANULOCYTES 0.5 % (0-5); LYMPHOCYTES 13.8 % (15-50); MCV 96.8 fL (80.0-100.0); MEAN PLATELET VOLUME 10.3 fL (7.4-10.4); MONOCYTES 10.1 % (2-11); NEUTROPHILS 72.2 % (40-80); PLATELET COUNT 412 10x3/uL (130-400); RBC 3.13 10x6/uL (4.20-6.10); RDW 15.1 % (11.5-14.5); WBC 7.5 10x3/uL (4.8-10.8)
[2018-01-30 06:01] LABS: ALBUMIN 2.2 g/dL (3.4-5.0); ALKALINE PHOSPHATASE 89 U/L (46-116); ALT (SGPT) 102 U/L (10-68); CALC OSMOLALITY 282 mosm/kg (275-300); CALCIUM 8.1 mg/dL (8.5-10.1); CARBON DIOXIDE 30.5 mmol/L (21.0-32.0); CHLORIDE - SERUM 104 mmol/L (98-107); CREATININE - SERUM 0.4 mg/dL (0.6-1.3); GLUCOSE 108 mg/dL (74-106); POTASSIUM - SERUM 4.1 mmol/L (3.5-5.1); PRO BNP 261 pg/mL (0-125); PROTEIN - SERUM 6.5 g/dL (6.4-8.2); SODIUM 139 mmol/L (136-145); eGFR NON AFRICAN AMERICAN > 90 mL/min (90-120)
[2018-01-30 06:02] LABS: UREA NITROGEN 23 mg/dL (7-18)
[2018-01-31] VITALS (24 sets, daily range): BP systolic 117–164; BP diastolic 52–90
[2018-01-31 04:40] LABS: BASOPHILS 0.3 % (0-2); EOSINOPHILS 2.8 % (0-7); HEMATOCRIT 31.9 % (42.0-54.0); HEMOGLOBIN 10.4 g/dL (13.5-17.5); IMMATURE GRANULOCYTES 0.7 % (0-5); MCH 31.7 pg (26.0-34.0); MCHC 32.6 g/dL (31.0-37.0); MCV 97.3 fL (80.0-100.0); MEAN PLATELET VOLUME 10.5 fL (7.4-10.4); MONOCYTES 8.7 % (2-11); NEUTROPHILS 67.5 % (40-80); PLATELET COUNT 433 10x3/uL (130-400); RBC 3.28 10x6/uL (4.20-6.10); RDW 15.2 % (11.5-14.5); WBC 7.2 10x3/uL (4.8-10.8)
[2018-01-31 05:23] LABS: ALBUMIN 2.4 g/dL (3.4-5.0); ALKALINE PHOSPHATASE 95 U/L (46-116); ALT (SGPT) 95 U/L (10-68); CALCIUM 8.2 mg/dL (8.5-10.1); CARBON DIOXIDE 28.6 mmol/L (21.0-32.0); CREATININE - SERUM 0.4 mg/dL (0.6-1.3); GLUCOSE 106 mg/dL (74-106); PROTEIN - SERUM 6.7 g/dL (6.4-8.2); UREA NITROGEN 21 mg/dL (7-18); eGFR NON AFRICAN AMERICAN > 90 mL/min (90-120)
[2018-01-31 06:05] LABS: CALC OSMOLALITY 274 mosm/kg (275-300); CHLORIDE - SERUM 101 mmol/L (98-107); POTASSIUM - SERUM 4.2 mmol/L (3.5-5.1); SODIUM 136 mmol/L (136-145)
[2018-02-01] VITALS (17 sets, daily range): BP systolic 106–160; BP diastolic 50–78
[2018-02-01 04:07] LABS: BASOPHILS 0.4 % (0-2); EOSINOPHILS 2.8 % (0-7); HEMATOCRIT 32.8 % (42.0-54.0); HEMOGLOBIN 10.4 g/dL (13.5-17.5); IMMATURE GRANULOCYTES 0.4 % (0-5); LYMPHOCYTES 20.1 % (15-50); MCH 30.9 pg (26.0-34.0); MCHC 31.7 g/dL (31.0-37.0); MCV 97.3 fL (80.0-100.0); MEAN PLATELET VOLUME 10.5 fL (7.4-10.4); NEUTROPHILS 69.3 % (40-80); PLATELET COUNT 421 10x3/uL (130-400); RBC 3.37 10x6/uL (4.20-6.10); RDW 15.1 % (11.5-14.5); WBC 7.5 10x3/uL (4.8-10.8)
[2018-02-01 04:32] LABS: CALC OSMOLALITY 275 mosm/kg (275-300); CALCIUM 7.8 mg/dL (8.5-10.1); CARBON DIOXIDE 30.7 mmol/L (21.0-32.0); CHLORIDE - SERUM 100 mmol/L (98-107); CREATININE - SERUM 0.5 mg/dL (0.6-1.3); GLUCOSE 107 mg/dL (74-106); PHOSPHOROUS 3.1 mg/dL (2.5-4.9); SODIUM 137 mmol/L (136-145); UREA NITROGEN 17 mg/dL (7-18); eGFR NON AFRICAN AMERICAN > 90 mL/min (90-120)
[2018-02-01] MEDS ORDERED: VANCOMYCIN 1 GM/1 G1 IV (14:57)
[2018-02-02 07:31] LABS: FUNGUS CULTURE RESULT 1 Candida albicans (())
[2018-02-14 12:10] LABS: FUNGUS MYCOLOGY CULTURE Final report (())
[2018-02-23 10:22] LABS: FUNGUS MYCOLOGY CULTURE Final report (())
[2018-03-07 15:09] LABS: ACID FAST CULTURE Negative (()); ACID FAST SMEAR Negative (())
== END 2018-02-01 16:56 | disposition short-term general hospital (02) | DRG 3 ==
LOC: D.ER 19:21 → D.ICU 01-13 00:20 → D.MS 01-13 00:20 → D.EDHOLD 01-13 00:20 → D.MS 01-13 01:53 → D.SDCHOLD 01-13 16:02 → D.MS 01-13 16:02 → D.ICU 01-15 10:22
PROVIDERS: Family Medicine; Internal Medicine Pulmonary Disease
PROC: 0B998ZZ Drainage of Lingula Bronchus, Via Natural or Artificial Opening Endoscopic (ICD-10-PCS; principal; 2018-01-16)
PROC: 0B948ZZ Drainage of Right Upper Lobe Bronchus, Via Natural or Artificial Opening Endoscopic (ICD-10-PCS; 2018-01-16)
PROC: 0B988ZZ Drainage of Left Upper Lobe Bronchus, Via Natural or Artificial Opening Endoscopic (ICD-10-PCS; 2018-01-16)
PROC: 0B958ZZ Drainage of Right Middle Lobe Bronchus, Via Natural or Artificial Opening Endoscopic (ICD-10-PCS; 2018-01-16)
PROC: 0B978ZZ Drainage of Left Main Bronchus, Via Natural or Artificial Opening Endoscopic (ICD-10-PCS; 2018-01-16)
PROC: 0B968ZZ Drainage of Right Lower Lobe Bronchus, Via Natural or Artificial Opening Endoscopic (ICD-10-PCS; 2018-01-16)
PROC: 0B9B8ZZ Drainage of Left Lower Lobe Bronchus, Via Natural or Artificial Opening Endoscopic (ICD-10-PCS; 2018-01-16)
PROC: 02HV33Z Insertion of Infusion Device into Superior Vena Cava, Percutaneous Approach (ICD-10-PCS; 2018-01-16)
PROC: B548ZZA Ultrasonography of Superior Vena Cava, Guidance (ICD-10-PCS; 2018-01-16)
PROC: 0B998ZZ Drainage of Lingula Bronchus, Via Natural or Artificial Opening Endoscopic (ICD-10-PCS; 2018-01-17)
PROC: 0B948ZZ Drainage of Right Upper Lobe Bronchus, Via Natural or Artificial Opening Endoscopic (ICD-10-PCS; 2018-01-17)
PROC: 0B988ZZ Drainage of Left Upper Lobe Bronchus, Via Natural or Artificial Opening Endoscopic (ICD-10-PCS; 2018-01-17)
PROC: 0B958ZZ Drainage of Right Middle Lobe Bronchus, Via Natural or Artificial Opening Endoscopic (ICD-10-PCS; 2018-01-17)
PROC: 0B978ZZ Drainage of Left Main Bronchus, Via Natural or Artificial Opening Endoscopic (ICD-10-PCS; 2018-01-17)
PROC: 0B9B8ZZ Drainage of Left Lower Lobe Bronchus, Via Natural or Artificial Opening Endoscopic (ICD-10-PCS; 2018-01-17)
PROC: 0B9J8ZZ Drainage of Left Lower Lung Lobe, Via Natural or Artificial Opening Endoscopic (ICD-10-PCS; 2018-01-19)
PROC: 0B968ZZ Drainage of Right Lower Lobe Bronchus, Via Natural or Artificial Opening Endoscopic (ICD-10-PCS; 2018-01-19)
PROC: 0B918ZZ Drainage of Trachea, Via Natural or Artificial Opening Endoscopic (ICD-10-PCS; 2018-01-19)
PROC: 0B938ZZ Drainage of Right Main Bronchus, Via Natural or Artificial Opening Endoscopic (ICD-10-PCS; 2018-01-19)
PROC: 0B978ZZ Drainage of Left Main Bronchus, Via Natural or Artificial Opening Endoscopic (ICD-10-PCS; 2018-01-19)
PROC: 0B113F4 Bypass Trachea to Cutaneous with Tracheostomy Device, Percutaneous Approach (ICD-10-PCS; 2018-01-20)
PROC: 0B9F8ZZ Drainage of Right Lower Lung Lobe, Via Natural or Artificial Opening Endoscopic (ICD-10-PCS; 2018-01-24)
PROC: 0B928ZZ Drainage of Carina, Via Natural or Artificial Opening Endoscopic (ICD-10-PCS; 2018-01-24)
PROC: 0B948ZZ Drainage of Right Upper Lobe Bronchus, Via Natural or Artificial Opening Endoscopic (ICD-10-PCS; 2018-01-24)
PROC: 0B988ZZ Drainage of Left Upper Lobe Bronchus, Via Natural or Artificial Opening Endoscopic (ICD-10-PCS; 2018-01-24)
PROC: 0B918ZZ Drainage of Trachea, Via Natural or Artificial Opening Endoscopic (ICD-10-PCS; 2018-01-24)
PROC: 0B958ZZ Drainage of Right Middle Lobe Bronchus, Via Natural or Artificial Opening Endoscopic (ICD-10-PCS; 2018-01-24)
PROC: 0B938ZZ Drainage of Right Main Bronchus, Via Natural or Artificial Opening Endoscopic (ICD-10-PCS; 2018-01-24)
PROC: 0B978ZZ Drainage of Left Main Bronchus, Via Natural or Artificial Opening Endoscopic (ICD-10-PCS; 2018-01-24)
PROC: 0B9B8ZZ Drainage of Left Lower Lobe Bronchus, Via Natural or Artificial Opening Endoscopic (ICD-10-PCS; 2018-01-24)
PROC: 0B998ZZ Drainage of Lingula Bronchus, Via Natural or Artificial Opening Endoscopic (ICD-10-PCS; 2018-01-24)
DX: J69.0 Pneumonitis due to inhalation of food and vomit (principal); J96.01 Acute respiratory failure with hypoxia; J96.02 Acute respiratory failure with hypercapnia; R53.2 Functional quadriplegia; I50.23 Acute on chronic systolic (congestive) heart failure; E87.2 Acidosis; J98.11 Atelectasis; T17.590A Other foreign object in bronchus causing asphyxiation, initial encounter; N17.9 Acute kidney failure, unspecified; B37.0 Candidal stomatitis; J21.9 Acute bronchiolitis, unspecified; E46 Unspecified protein-calorie malnutrition; J15.212 Pneumonia due to Methicillin resistant Staphylococcus aureus; G80.9 Cerebral palsy, unspecified; R13.10 Dysphagia, unspecified; K21.9 Gastro-esophageal reflux disease without esophagitis; F41.9 Anxiety disorder, unspecified; R79.89 Other specified abnormal findings of blood chemistry; G47.33 Obstructive sleep apnea (adult) (pediatric); K44.9 Diaphragmatic hernia without obstruction or gangrene; E83.39 Other disorders of phosphorus metabolism; E87.6 Hypokalemia; Z68.22 Body mass index [BMI] 22.0-22.9, adult; R53.81 Other malaise; D50.9 Iron deficiency anemia, unspecified; K80.80 Other cholelithiasis without obstruction; M41.9 Scoliosis, unspecified